=== PATIENT | female | born 1965 | race Caucasian/White ===

== ENCOUNTER → 2018-02-12 | Outpatient (CLI) | payer OTHER ==
--- NOTE | 2018-02-15 12:42 | MM ---
Reason for exam: screening (asymptomatic). Last mammogram was performed 2 years and 1 month ago. History: Patient is nulliparous. Took hormonal contraceptives for 9 months. Physical Findings: A clinical breast exam by your physician is recommended on an annual basis and results should be correlated with mammographic findings. MG 3D Screening Mammo W/Cad Bilateral CC and MLO view(s) were taken. Prior study comparison: January 25, 2016, bilateral MG screening mammo w CAD. August 23, 2012, bilateral digital screening mammo w/CAD. The breast tissue is heterogeneously dense. This may lower the sensitivity of mammography. There is chronic nodularity in the left breast. No significant changes when compared with prior studies. ASSESSMENT: Benign, BI-RAD 2 RECOMMENDATION: Routine screening mammogram of both breasts in 1 year.
== END | disposition home or self-care (01) ==
LOC: RADMAMWWP 13:50
PROVIDERS: ATTEND Family Medicine
DX: Z12.31 Encounter for screening mammogram for malignant neoplasm of breast (principal)
CPT/HCPCS: 77063; 77067

== ENCOUNTER → 2019-05-06 | Outpatient (CLI) | payer OTHER ==
--- NOTE | 2019-05-09 13:18 | MM ---
Reason for exam: screening (asymptomatic). Last mammogram was performed 1 year and 3 months ago. History: Patient is postmenopausal and is nulliparous. Took hormonal contraceptives for 9 months. Physical Findings: A clinical breast exam by your physician is recommended on an annual basis and results should be correlated with mammographic findings. MG 3D Screening Mammo W/Cad Bilateral CC and MLO view(s) were taken. Prior study comparison: February 12, 2018, bilateral MG 3d screening mammo w/cad. January 25, 2016, bilateral MG screening mammo w CAD. The breast tissue is heterogeneously dense. This may lower the sensitivity of mammography. Asymmetric density incompletely disperses medially right breast on the CC view. Further evaluation recommended. ASSESSMENT: Incomplete: need additional imaging evaluation, BI-RAD 0 RECOMMENDATION: Special view mammogram of the right breast. (3D) If lesion persists on supplemental views, image directed ultrasound is recommended. [facility] will attempt to contact patient to return for supplemental views and ultrasound if indicated.
== END | disposition home or self-care (01) ==
LOC: RADMAMWWP 14:45
PROVIDERS: ATTEND Family Medicine
DX: Z12.31 Encounter for screening mammogram for malignant neoplasm of breast (principal)
CPT/HCPCS: 77063; 77067

== ENCOUNTER → 2019-05-11 | Outpatient (CLI) | payer OTHER ==
--- NOTE | 2019-05-12 07:44 | MM ---
Reason for exam: additional evaluation requested from abnormal screening. Last mammogram was performed less than 1 month ago. History: Patient is postmenopausal and is nulliparous. Took hormonal contraceptives for 9 months. Physical Findings: Nurse did not find any significant physical abnormalities on exam. MG 3D Work Up W/Cad RT Spot compression CC, ML, and spot compression CCRL view(s) were taken of the right breast. Prior study comparison: May 06, 2019, bilateral MG 3d screening mammo w/cad. February 12, 2018, bilateral MG 3d screening mammo w/cad. The breast tissue is heterogeneously dense. This may lower the sensitivity of mammography. No suspicious abnormality. The right medial middle depth asymmetry appears as the exam of 2011. These results were verbally communicated with the patient and result sheet given to the patient on 05/11/19. ASSESSMENT: Benign, BI-RAD 2 RECOMMENDATION: Return to routine screening mammogram schedule for both breasts.
== END | disposition home or self-care (01) ==
LOC: RADMAMWWP 14:12
PROVIDERS: ATTEND Family Medicine
DX: R92.8 Other abnormal and inconclusive findings on diagnostic imaging of breast (principal)
CPT/HCPCS: 77061; 77065

== ENCOUNTER → 2019-08-02 | Outpatient (CLI) | payer OTHER ==
--- NOTE | 2019-08-02 10:50 | MR ---
EXAMINATION TYPE: MR brain wo/w con DATE OF EXAM: 08/02/2019 COMPARISON: None HISTORY: Headache TECHNIQUE: Multiplanar, multisequence images of the brain and brainstem is performed without and with IV contras t, utilizing 10 mL intravenous Gadavist . FINDINGS: Diffusion weighted images demonstrate no evidence of a recent infarct or other diffusion ab normality. The ventricular system and cisternal spaces are normal in size and appearance. The brain volume is age appropriate. Midline structures demonstrate normal morphology. The craniocervical junction appears within normal limits. Post contrast images demonstrate no abnormal enhancement. The dural venous sinuses appear pa tent. Changes of mild chronic sinusitis. There are numerous bilateral focal areas of abnormal signal seen scattered throughout the white matte r bilaterally the largest in the periatrial region on the right measuring approximately 1.2 cm. There are no enhancing lesions. IMPRESSION: 1. Numerous bilateral focal areas of abnormal white matter signal in a nonspecific distribution total ing greater than 50 with no enhancing lesions. Differential diagnosis includes extensive remote ische david white matter change although demyelinating process also in the differential diagnosis.
== END | disposition home or self-care (01) ==
LOC: RADMRIMAIN 09:38
PROVIDERS: ATTEND Family Medicine
DX: I67.82 Cerebral ischemia (principal); R90.82 White matter disease, unspecified; R51 Headache
CPT/HCPCS: 70553; A9585

== ENCOUNTER → 2019-08-08 | Outpatient (CLI) | payer OTHER ==
[2019-08-08 16:09] LABS: Vitamin D 25 Hydroxy 20.8 ng/mL (30.0-100.0)
[2019-08-08 16:28] LABS: C Reactive Protein 0.6 mg/dL (0.0-0.8); Chol/HDL Ratio 3.33; LDL Cholesterol,Calculated 118.6 mg/dL (0.0-131.0); VLDL Calculation 14.4 mg/dL (5.00-40.00)
== END | disposition home or self-care (01) ==
LOC: LABWHC1 07:51
PROVIDERS: ATTEND Psychiatry & Neurology Neurology
DX: G44.229 Chronic tension-type headache, not intractable (principal)
CPT/HCPCS: 36415; 80061; 82306; 82607; 85652; 86140

== ENCOUNTER → 2019-08-09 | Outpatient (CLI) | payer OTHER ==
--- NOTE | 2019-08-09 09:00 | US ---
EXAMINATION TYPE: US carotid duplex BILAT DATE OF EXAM: 08/09/2019 COMPARISON: NONE CLINICAL HISTORY: R51 Headache,G44.229 Tension Headache,G37.9 Demyel. headaches, no h/o stroke, patie nt being assessed for MS EXAM MEASUREMENTS: RIGHT: Peak Systolic Velocity (PSV) cm/sec ----- Right CCA: 54.6 ----- Right ICA: 59.6 ----- Right ECA: 83.5 ICA/CCA ratio: 1.1 RIGHT: End Diastole cm/sec ----- Right CCA: 24.7 ----- Right ICA: 24.0 ----- Right ECA: 30.8 LEFT: Peak Systolic Velocity (PSV) cm/sec ----- Left CCA: 59.4 ----- Left ICA: 68.4 ----- Left ECA: 75.1 ICA/CCA ratio: 1.2 LEFT: End Diastole cm/sec ----- Left CCA: 27.3 ----- Left ICA: 27.3 ----- Left ECA: 22.1 VERTEBRALS (direction of flow): Right Vertebral: Antegrade Left Vertebral: Antegrade Rhythm: Normal Mild homogeneous plaque seen with no significant stenosis IMPRESSION: Mild degree of grayscale atheromatous plaquing with no sonographically evident hemodynam ically significant stenosis within either visualized carotid arterial system. Criteria for Assigning % of Stenosis / Diameter reduction (Estimation based on the indirect measurements of the internal carotid artery velocities (ICA PSV). 1. Normal (no stenosis)=ICA PSV < 125 cm/s: ratio < 2.0: ICA EDV<40 cm/s. 2. Less than 50% stenosis=ICA PSV < 125 cm/s: ratio < 2.0: ICA EDV<40 cm/s. 3. 50 to 69% stenosis=ICA PSV of 125 to 230 cm/s: ration 2.0 ? 4.0: ICA EDV 40-100 cm/s. 4. Greater than 70% stenosis to near occlusion= ICA PSV > 230 cm/s: ratio > 4.0: ICA EDV > 100 cm/s. 5. Near occlusion= ICA PSV velocities may be low or undetectable: variable ratio and ICA EDV. 6. Total occlusion=unable to detect flow.
== END | disposition home or self-care (01) ==
LOC: RADUSWWP 08:16
PROVIDERS: ATTEND Psychiatry & Neurology Neurology
DX: I67.2 Cerebral atherosclerosis (principal); G37.9 Demyelinating disease of central nervous system, unspecified; G44.229 Chronic tension-type headache, not intractable
CPT/HCPCS: 93880

== ENCOUNTER 2019-08-11 06:31 | Day surgery (SDC) | payer OTHER ==
[2019-08-08 16:03] VITALS: BMI 35.7
[2019-08-11 07:02] VITALS: TEMP 97.4
[2019-08-11 07:11] LABS: Glucose,Whole Blood 105 mg/dL (75-99)
[2019-08-11] MEDS ORDERED: LIDOCAINE 1% 20 ML VIAL (10MG/ML) FOR IV START INTRADERMA ONE (07:14)
[2019-08-11] MEDS ORDERED: LACTATED RINGERS 1,000 ML IV ONE (07:14)
--- NOTE | 2019-08-11 07:48 | P.PCN ---
Date of Procedure: 08/11/19 Procedure(s) Performed: Preoperative diagnosis: Demyelinating disease Post operative diagnoses: Demyelinating disease Anesthesia= moderately sedation with Versed 2 mg and fentanyl 100 g and local infiltration with lidocaine 1% 2 mL. Condition: stable Complication: none. Description of the procedure procedure risk and benefits discussed with the patient and family, consent signed. Patient and the procedure area placed in lateral position back prepped with chlorhexidine 3 times been local infiltration of the skin and subcutaneous tissue with lidocaine 1% 2 mL for skin and subcu interstitial frustrations at L4 5 levels then 22-gauge Quincke-type needle advanced slowly at L4- 5 interlaminar space there was positive cerebrospinal fluid which was clear, no heme, no paresthesia ,total of 8 ML of clear cerebrospinal fluid collected in 4 different tubes 2 mL in each, then the needle removed and a Band-Aid applied and patient tolerated the procedure well without any complications.
[2019-08-11] MEDS ORDERED: IV FLUID CONTINUATION 1,000 ML IV ONE (07:51)
[2019-08-11 08:16] LABS: T4, Free (Free Thyroxine) 0.9 ng/dL (0.78-2.19)
[2019-08-11 08:36] VITALS: BP 130/75; PULSE 69; RESP 16
[2019-08-11] MEDS ORDERED: LACTATED RINGERS 1,000 ML IV SCH (09:30)
[2019-08-11 11:36] LABS: Rheumatoid Factor 8 IU/mL (0-15)
[2019-08-11 12:08] LABS: Glucose,CSF 61 mg/dL (40-70); Total Protein,CSF 34 mg/dL (12-60)
[2019-08-11 12:30] LABS: Anti-DNA, DS unit <1.0 IU/mL; Anti-Smith Ab Interp NEGATIVE (NEGATIVE); DNA Double-Stranded NEGATIVE (NEGATIVE)
[2019-08-11 15:21] LABS: Appearance,CSF Clear; CSF Tube Number 4
[2019-08-11 15:22] LABS: Nucleated Cells, CSF 0 u/L (0-5); Red Blood Cell,CSF 3 u/L (0-10)
[2019-08-12 09:44] LABS: Lyme IgG/IgM 0.08 Index
[2019-08-12 12:21] LABS: VDRL, Qualitative CSF Nonreactive (Nonreactive)
[2019-08-12 13:33] LABS: APTT 36 Sec(s) (<43); Dilute Russell Viper Venom 40 Sec(s) (<44)
[2019-08-16 15:06] LABS: IgG - CSF 1.4 mg/dL (0.0 - 3.4); IgG/Albumin Index (CSF) 0.49 (0.00 - 0.77); Immunoglobulin G 888 mg/dL (700 - 1600)
== END 2019-08-11 08:37 | disposition home or self-care (01) ==
LOC: ORPAIN 06:31
PROVIDERS: ATTEND Specialist
DX: G37.9 Demyelinating disease of central nervous system, unspecified (principal)
CPT/HCPCS: 86592; 86235 ×3; 84439; 88108; 84157; 82945; 82040; 82042; 82784; 83916; 83873; 84443; 84450; 84460; 85730; 86431; 85613; 89050; 86618; 86780; 86038; 86225; 87801; 62270; J2250; J3010; 99152

== ENCOUNTER 2019-08-13 08:07 | Emergency (ER) | payer OTHER ==
[2019-08-13 08:13] VITALS: RESP 18; TEMP 98
[2019-08-13] MEDS ORDERED: diphenhydrAMINE 50 MG/ML 1 ML VIAL IVP STA (08:30)
[2019-08-13] MEDS ORDERED: SODIUM CHLORIDE 0.9% 1,000 ML IV STA (08:30)
[2019-08-13] MEDS ORDERED: METOCLOPRAMIDE 5 MG/ML 2 ML VIAL IVP STA (08:30)
[2019-08-13] MEDS ORDERED: KETOROLAC 30 MG/ML 1 ML VIAL IVP STA (08:30)
[2019-08-13] MEDS ORDERED: CAFFEINE CITRATE 500 MG in DEXTROSE 5% IN WATER 50 ML IVPB STA ×2 (08:32)
--- NOTE | 2019-08-13 08:37 | ED ---
General Adult HPI - General Chief complaint: Headache Stated complaint: head/neck pain Time Seen by Provider: 08/13/19 08:17 Source: patient, RN notes reviewed, old records reviewed Mode of arrival: ambulatory Limitations: no limitations - History of Present Illness Initial comments: Patient is a 53-year-old female presents emergency department today 2 days after lumbar puncture complaining of a positional headache. Patient reports that she had the lumbar puncture to evaluate for demyelinating disease, MS. Patient states she's had a history of frequent headaches, and has had outpatient studies including MRI and completed this lumbar puncture. Patient reports that her headache is worse with sitting up and does have some relief with lying backw ards. Patient states that she lays completely flat does have some pain at the lower back lumbar puncture site. She states she's been sleeping in a 20 angle. She's been drinking a lot of caffeine to try to help with her symptoms. Patient reports that the headache seemed to start Paxil 24 hours after lumbar puncture and was worse when she woke up on Thursday morning. She she had a mild headache after the actual lumbar puncture was not as severe as it was 24 hours later. Patient states she's had no fevers or chills. Patient states that she has had a neck fusion many years ago due to a work-related injury. Patient states that she has been having some irritation over the back of her left arm but denies any specific chest pain shortness of breath. Says her arm pain seems to feel like a pinched nerve.Patient denies any recent fever, chills, shortness of breath, chest pain, back pain, abdominal pain, nausea vomiting, numbness or tingling, dysuria or hematuria, constipation or diarrhea, visual changes, or any other current symptoms - Related Data Home Medications Medication Instructions Recorded Confirmed Atenolol [Tenormin] 50 mg PO DAILY 12/13/14 08/11/19 Omeprazole [PriLOSEC] 20 mg PO DAILY 12/13/14 08/11/19 Spironolactone-Hctz 25-25Mg 1 each PO DAILY 12/13/14 08/11/19 [Aldactazide 25-25 MG] Acetaminophen-Codeine 300-30mg 1 - 2 tab PO DAILY PRN 08/08/19 08/11/19 [Tylenol w/codeine #3] Aspirin [Adult Low Dose Aspirin EC] 81 mg PO DAILY 08/08/19 08/11/19 Felicia 500 mg PO DAILY 08/08/19 08/11/19 Ginkgo Biloba 500 mg PO DAILY 08/08/19 08/11/19 Nortriptyline HCl [Pamelor] 25 mg PO HS 08/08/19 08/11/19 Allergies Allergy/AdvReac Type Severity Reaction Status Date / Time oranges Allergy Itching,yadiel Uncoded 08/13/19 08:08 h Review of Systems ROS Statement: Those systems with pertinent positive or pertinent negative responses have been documented in the HPI. ROS Other: All systems not noted in ROS Statement are negative. Past Medical History Past Medical History: GERD/Reflux, Hypertension Additional Past Medical History / Comment(s): varicose veins,migraines,hypoglycemia History of Any Multi-Drug Resistant Organisms: None Reported Past Surgical History: Orthopedic Surgery, Tubal Ligation, Uterine Ablation Additional Past Surgical History / Comment(s): arthroscopic rt knee x 2, neck surgery for herniated disk, lumbar puncture Past Anesthesia/Blood Transfusion Reactions: Motion Sickness, Postoperative Nausea & Vomiting (PONV) Additional Past Anesthesia/Blood Transfusion Reaction / Comment(s): can not touc h her chin to her chest as result of neck surgery- no limitations to tip head back Past Psychological History: No Psychological Hx Reported Smoking Status: Former smoker Past Alcohol Use History: None Reported Past Drug Use History: None Reported General Exam - General Exam Comments Initial Comments: 53 year old female, alert and oriented. No distress. Limitations: no limitations General appearance: alert, in no apparent distress Head exam: Present: atraumatic, normocephalic, normal inspection Eye exam: Present: normal appearance ENT exam: Present: normal exam, mucous membranes moist Neck exam: Present: normal inspection Respiratory exam: Present: normal lung sounds bilaterally. Absent: respiratory distress, wheezes, rales, rhonchi, stridor Cardiovascular Exam: Present: regular rate, normal rhythm, normal heart sounds. Absent: systolic murmur, diastolic murmur, rubs, gallop, clicks GI/Abdominal exam: Present: soft, normal bowel sounds. Absent: distended, tenderness, guarding, rebound, rigid Extremities exam: Present: normal inspection, full ROM, normal capillary refill. Absent: tenderness, pedal edema, joint swelling, calf tenderness Back exam: Present: normal inspection Neurological exam: Present: alert, oriented X3, CN II-XII intact Expanded Neurological exam: Present: other (Patient reports headache is worse with sitting up.) Patient oriented to: Present: person, place, time Speech: Present: fluid speech Cranial nerves: EOM's Intact: Normal Cerebellar function: Finger to Nose: Normal Upper motor neuron: Pronator Drift: Normal Sensory exam: Upper Extremity Light Touch: Normal, Lower Extremity Light Touch: Normal Motor strength exam: RUE: 5, LUE: 5, RLE: 5, LLE: 5 Eye Response: (4) open spontaneously Motor Response: (6) obeys commands Verbal Response: (5) oriented Josh Total: 15 Psychiatric exam: Present: normal affect, normal mood Skin exam: Present: warm Course Vital Signs 08/13/19 08/13/19 08/13/19 08:08 10:24 11:30 Temperature 98 F Pulse Rate 80 73 85 Respiratory 18 18 18 Rate Blood Pressure 149/97 160/89 146/95 O2 Sat by Pulse 99 100 100 Oximetry - Reevaluation(s) Reevaluation #1: 08/13/19 09:58 Discussed the case with Dr. Hinojosa, anesthesiologist. He will be down to the emergency department to evaluate Patient after his current case. Reevaluation #2: 08/13/19 11:31 Contacted anesthesia again, he has dizziness time with labor and delivery. Patient was informed that may be that he'll he is here for possible blood patch procedure. Medical Decision Making - Medical Decision Making Patient 3-year-old female presents today with chief complaint of lumbar puncture headache. Symptoms started to worsen 24 hours after lumbar puncture. She's being violated for MS. At this time Patient was given migraine cocktail and caffeine. On reevaluation shorts her headache with a little improvement but continues to have worsening headache with sitting up. She has no noted other neurological deficits. He contacted anesthesia and Dr. Hinojosa performed a blood patch. Patient reports immediate relief after the blood patch procedure. Patient was reevaluated and states she feels well enough wants to go home. Discharged on precautions and instructed to return parameters. All questions answered return parameters were discussed. - Lab Data Result diagrams: 08/13/19 08:45 08/13/19 08:45 Lab Results 08/13/19 08/13/19 08/13/19 Range/Units 08:45 08:45 08:45 WBC 6.3 (3.8-10.6) k/uL RBC 4.67 (3.80-5.40) m/uL Hgb 14.1 (11.4-16.0) gm/dL Hct 43.0 (34.0-46.0) % MCV 92.1 (80.0-100.0) fL MCH 30.2 (25.0-35.0) pg MCHC 32.8 (31.0-37.0) g/dL RDW 12.9 (11.5-15.5) % Plt Count 303 (150-450) k/uL Neutrophils % 70 % Lymphocytes % 22 % Monocytes % 4 % Eosinophils % 2 % Basophils % 1 % Neutrophils # 4.4 (1.3-7.7) k/uL Lymphocytes # 1.4 (1.0-4.8) k/uL Monocytes # 0.2 (0-1.0) k/uL Eosinophils # 0.1 (0-0.7) k/uL Basophils # 0.0 (0-0.2) k/uL PT 9.8 (9.0-12.0) sec INR 0.9 (<1.2) APTT 22.8 (22.0-30.0) sec Sodium 141 (137-145) mmol/L Potassium 3.5 (3.5-5.1) mmol/L Chloride 102 (98-107) mmol/L Carbon Dioxide 26 (22-30) mmol/L Anion Gap 13 mmol/L BUN 15 (7-17) mg/dL Creatinine 0.99 (0.52-1.04) mg/dL Est GFR (CKD-EPI)AfAm 76 (>60 ml/min/1.73 sqM) Est GFR (CKD-EPI)NonAf 66 (>60 ml/min/1.73 sqM) Glucose 146 H (74-99) mg/dL Calcium 9.9 (8.4-10.2) mg/dL Total Bilirubin 0.4 (0.2-1.3) mg/dL AST 21 (14-36) U/L ALT 30 (9-52) U/L Alkaline Phosphatase 54 (38-126) U/L Troponin I (0.000-0.034) ng/mL Total Protein 7.1 (6.3-8.2) g/dL Albumin 4.1 (3.5-5.0) g/dL 08/13/19 Range/Units 08:45 WBC (3.8-10.6) k/uL RBC (3.80-5.40) m/uL Hgb (11.4-16.0) gm/dL Hct (34.0-46.0) % MCV (80.0-100.0) fL MCH (25.0-35.0) pg MCHC (31.0-37.0) g/dL RDW (11.5-15.5) % Plt Count (150-450) k/uL Neutrophils % % Lymphocytes % % Monocytes % % Eosinophils % % Basophils % % Neutrophils # (1.3-7.7) k/uL Lymphocytes # (1.0-4.8) k/uL Monocytes # (0-1.0) k/uL Eosinophils # (0-0.7) k/uL Basophils # (0-0.2) k/uL PT (9.0-12.0) sec INR (<1.2) APTT (22.0-30.0) sec Sodium (137-145) mmol/L Potassium (3.5-5.1) mmol/L Chloride (98-107) mmol/L Carbon Dioxide (22-30) mmol/L Anion Gap mmol/L BUN (7-17) mg/dL Creatinine (0.52-1.04) mg/dL Est GFR (CKD-EPI)AfAm (>60 ml/min/1.73 sqM) Est GFR (CKD-EPI)NonAf (>60 ml/min/1.73 sqM) Glucose (74-99) mg/dL Calcium (8.4-10.2) mg/dL Total Bilirubin (0.2-1.3) mg/dL AST (14-36) U/L ALT (9-52) U/L Alkaline Phosphatase (38-126) U/L Troponin I <0.012 (0.000-0.034) ng/mL Total Protein (6.3-8.2) g/dL Albumin (3.5-5.0) g/dL - Radiology Data Radiology results: report reviewed EKG shows sinus rhythm normal EKG. Ventricular rate of 69 bpm. Vitals 198 ms. QRS duration is 90 ms. QT QTc is 92/420 ms. Disposition Clinical Impression: Post lumbar puncture headache Disposition: HOME SELF-CARE Condition: Good Instructions (If sedation given, give patient instructions): Epidural Blood Patch (DC) Additional Instructions: Patient advised to rest, remain hydrated. Continue to drink plenty of caffeine. Return to the emergency department if any alarming signs or symptoms occur. Is patient prescribed a controlled substance at d/c from ED?: No Referrals: Luis Eduardo Sanford DO [Primary Care Provider] - 1-2 days Time of Disposition: 12:10
[2019-08-13] MEDS ORDERED: HALOPERIDOL DECANOATE 50 MG/ML 1 ML VIAL IM STA (08:46)
[2019-08-13 09:00] LABS: Basophils % (A) 1 %; Eosinophils # (A) 0.1 k/uL (0-0.7); Eosinophils % (A) 2 %; HGB 14.1 gm/dL (11.4-16.0); Lymphocytes # (A) 1.4 k/uL (1.0-4.8); Lymphocytes % (A) 22 %; MCH 30.2 pg (25.0-35.0); MCHC 32.8 g/dL (31.0-37.0); MCV 92.1 fL (80.0-100.0); Mean Platelet Volume 7.3; Monocytes # (A) 0.2 k/uL (0-1.0); Monocytes % (A) 4 %; Neutrophils # (A) 4.4 k/uL (1.3-7.7); Neutrophils % (A) 70 %; Platelet Count 303 k/uL (150-450); RBC 4.67 m/uL (3.80-5.40); RDW 12.9 % (11.5-15.5); WBC 6.3 k/uL (3.8-10.6)
[2019-08-13] MEDS ORDERED: CAFFEINE-SODIUM BENZOATE 500 MG in SODIUM CHLORIDE 0.9% 1,000 ML IVPB ONE (09:00)
[2019-08-13 09:12] LABS: INR 0.9 (<1.2); Partial Thromboplastin Time 22.8 sec (22.0-30.0); Prothrombin Time 9.8 sec (9.0-12.0)
[2019-08-13 09:16] LABS: Albumin 4.1 g/dL (3.5-5.0); Calcium 9.9 mg/dL (8.4-10.2); Potassium 3.5 mmol/L (3.5-5.1); Total Bilirubin 0.4 mg/dL (0.2-1.3); Total Protein 7.1 g/dL (6.3-8.2)
[2019-08-13 11:39] VITALS: BP 146/95; PULSE 85
--- NOTE | 2019-08-13 12:15 | P.PAINCN ---
History of Present Illness - Reason for Consult Consult date: 08/13/19 - Chief Complaint Bifrontal and occipital headache - History of Present Illness 53-year-old female who presented to [facility] emergency [facility] secondary to bifrontal and occipital headaches. She status post lumbar puncture on 08/09/2019. Lumbar puncture was performed in order to rule out multiple sclerosis. The following day patient woke up with a complaint of bifrontal headaches worse in the sitting position and improved when supine. She also complains of new rigidity in the upright position. Pain into her between 8 and 9 at 10 in severity mostly in the bifrontal region as well as in the occiput. She has a history of intermittent headaches mostly in the bifrontal region however not involving the occiput. She denies a history of migraines. She tried conservative therapy of IV hydration as well as caffeine with minimal benefit. She has complaints of mild nausea, but no vomiting, no tinnitus, no photophobia. Pain service was consulted for evaluation of possible postdural puncture headache. Review of Systems 14 point review of systems negative except as mentioned in HPI. Past Medical History Past Medical History: GERD/Reflux, Hypertension Additional Past Medical History / Comment(s): varicose veins,migraines,hypoglycemia History of Any Multi-Drug Resistant Organisms: None Reported Past Surgical History: Orthopedic Surgery, Tubal Ligation, Uterine Ablation Additional Past Surgical History / Comment(s): arthroscopic rt knee x 2, neck surgery for herniated disk, lumbar puncture Past Anesthesia/Blood Transfusion Reactions: Motion Sickness, Postoperative Nausea & Vomiting (PONV) Additional Past Anesthesia/Blood Transfusion Reaction / Comm: can not touch her chin to her chest as result of neck surgery- no limitations to tip head back Past Psychological History: No Psychological Hx Reported Smoking Status: Former smoker Past Alcohol Use History: None Reported Past Drug Use History: None Reported Medications and Allergies Home Medications Medication Instructions Recorded Confirmed Type Atenolol [Tenormin] 50 mg PO DAILY 12/13/14 08/11/19 History Omeprazole [PriLOSEC] 20 mg PO DAILY 12/13/14 08/11/19 History Spironolactone-Hctz 25-25Mg 1 each PO DAILY 12/13/14 08/11/19 History [Aldactazide 25-25 MG] Acetaminophen-Codeine 300-30mg 1 - 2 tab PO DAILY PRN 08/08/19 08/11/19 History [Tylenol w/codeine #3] Aspirin [Adult Low Dose Aspirin EC] 81 mg PO DAILY 08/08/19 08/11/19 History Felicia 500 mg PO DAILY 08/08/19 08/11/19 History Ginkgo Biloba 500 mg PO DAILY 08/08/19 08/11/19 History Nortriptyline HCl [Pamelor] 25 mg PO HS 08/08/19 08/11/19 History Allergies Allergy/AdvReac Type Severity Reaction Status Date / Time oranges Allergy Itching,yadiel Uncoded 08/13/19 08:08 h Physical Exam Vitals: Vital Signs Temp Pulse Resp BP Pulse Ox 08/13/19 11:30 85 18 146/95 100 08/13/19 10:24 73 18 160/89 100 08/13/19 08:08 98 F 80 18 149/97 99 Intake and Output 08/12/19 08/13/19 08/13/19 22:59 06:59 14:59 Other: Weight 96.615 kg - Constitutional General appearance: obese - EENT Eyes: PERRLA ENT: hearing grossly normal, normal oropharynx - Neck Neck: other (Psychiatric decreased range of motion secondary to cervical fusion) - Respiratory Respiratory: bilateral: CTA - Cardiovascular Rhythm: regular Heart sounds: normal: S1, S2 - Integumentary Integumentary: normal, normal turgor - Neurologic Neurologic: CNII-XII intact - Musculoskeletal Musculoskeletal: strength equal bilaterally - Psychiatric Psychiatric: A&O x's 3, appropriate affect, intact judgment & insight Results CBC & Chem 7: 08/13/19 08:45 08/13/19 08:45 Labs: Abnormal Lab Results - Last 24 Hours (Table) 08/13/19 Range/Units 08:45 Glucose 146 H (74-99) mg/dL Assessment and Plan Assessment: 1. Posterior puncture headache. Plan: I discussed the risks and benefits of proceeding with epidural blood patch which include infection, bleeding, rare nerve injury. The major risks discussed was potential for accidental dural puncture. I offered patient to continue conservative therapy with IV hydration and caffeine, I did inform her that 80- 90% of patients will have headache resolved within 7 days. Patient wished to proceed with an epidural blood patch knowing efficacy of roughly 85%. Patient wished to proceed and signed the consent. Time with Patient: Greater than 30 PQRS Measure Charge Sheet PQRS Narrative: Smoking Status Former smoker Blood Pressure 146/95 Pain Intensity 5 Pain Scale Used Numeric (1 - 10) Scale Used Numeric (1 - 10) Home Medications: Ambulatory Orders Atenolol [Tenormin] 50 mg PO DAILY 12/13/14 Omeprazole [PriLOSEC] 20 mg PO DAILY 12/13/14 Spironolactone-Hctz 25-25Mg [Aldactazide 25-25 MG] 1 each PO DAILY 12/13/14 Acetaminophen-Codeine 300-30mg [Tylenol w/codeine #3] 1 - 2 tab PO DAILY PRN 08/08/19 Aspirin [Adult Low Dose Aspirin EC] 81 mg PO DAILY 08/08/19 Felicia 500 mg PO DAILY 08/08/19 Ginkgo Biloba 500 mg PO DAILY 08/08/19 Nortriptyline HCl [Pamelor] 25 mg PO HS 08/08/19
--- NOTE | 2019-08-13 12:17 | P.PCN ---
Date of Procedure: 08/13/19 Description of Procedure: Procedure: Lumbar epidural blood patch. Preoperative diagnosis: Post Dural puncture headache. Postoperative diagnoses: Post Dural puncture headache. Indication for the procedure: patient developed headache after lumbar puncture and headache persists in spite of conservative treatment, there is no focal neurological deficit, no fever. headache worse with sitting and standing position, and improved with lying supine, for this reason patient is a good candidate for epidural blood patch. Anesthesia: none Complications: none. Description of the procedure Back lumbar area prepped with Betadine 3 times, then drape applied the local infiltration of the skin and subcutaneous tissue with lidocaine 1% 3 mL at L4-L5 interlaminar space then a 18-gauge Tuohy needle advanced slowly until loss or resistance was met at 7 cm. Additionally, a 20-gauge IV needle was inserted into the right antecubital and 20 ML of blood was taken from the patient, and injected in the epidural space after negative aspiration for heme or CSF. a total of 15 mL's blood was injected until complete resolution of patient's headache. There was no paresthesia then the needle removed intact the skin cleaned and band aid applied and patient discharged back to the floor in stable condition.
== END 2019-08-13 12:29 | disposition home or self-care (01) ==
LOC: EC 08:07
DX: G97.1 Other reaction to spinal and lumbar puncture (principal); M54.5 Low back pain; M79.602 Pain in left arm; K21.9 Gastro-esophageal reflux disease without esophagitis; I10 Essential (primary) hypertension; Z87.891 Personal history of nicotine dependence; Z91.018 Allergy to other foods; Z79.82 Long term (current) use of aspirin; Z79.899 Other long term (current) drug therapy; Z86.69 Personal history of other diseases of the nervous system and sense organs; Z87.828 Personal history of other (healed) physical injury and trauma; Z98.1 Arthrodesis status; Y84.4 Aspiration of fluid as the cause of abnormal reaction of the patient, or of later complication, without mention of misadventure at the time of the procedure
CPT/HCPCS: 36415; 93005; 80053; 84484; 85025; 85610; 85730; 99284; 62273; 96365; 96366 ×2; 96375 ×3; J1200; J2765; J1885

== ENCOUNTER → 2021-04-12 | Outpatient (CLI) | payer OTHER ==
--- NOTE | 2021-04-15 08:56 | MM ---
Reason for exam: screening (asymptomatic). Last mammogram was performed 1 year and 11 months ago. History: Patient is postmenopausal and is nulliparous. Took hormonal contraceptives for 9 months. Physical Findings: A clinical breast exam by your physician is recommended on an annual basis and results should be correlated with mammographic findings. MG 3D Screening Mammo W/Cad Bilateral CC and MLO view(s) were taken. Prior study comparison: May 11, 2019, right breast MG 3d work up w/cad RT. May 06, 2019, bilateral MG 3d screening mammo w/cad. The breast tissue is heterogeneously dense. This may lower the sensitivity of mammography. There are benign appearing round calcifications bilaterally. There is chronic nodularity in the left breast outer aspect. There is no discrete abnormality. ASSESSMENT: Benign, BI-RAD 2 RECOMMENDATION: Routine screening mammogram of both breasts in 1 year.
== END | disposition home or self-care (01) ==
LOC: RADMAMWWP 09:49
PROVIDERS: ATTEND Family Medicine
DX: Z12.31 Encounter for screening mammogram for malignant neoplasm of breast (principal); Z78.0 Asymptomatic menopausal state
CPT/HCPCS: 77063; 77067

== ENCOUNTER → 2022-08-27 | Outpatient (CLI) | payer MEDICARE ==
--- NOTE | 2022-08-27 10:16 | MM ---
Reason for Exam: Additional evaluation requested from prior study. Last mammogram was performed 1 year(s) and 4 month(s) ago. Patient History: Menarche at age 15. Patient has no children. Postmenopausal. Breast cancer, left, age 56. Hormonal Contraceptives for 9 months. 05/09/2022, Bilateral Reduction. Tissue Density: The breast tissue is heterogeneously dense. This may lower the sensitivity of mammography. Findings: Analyzed By CAD. Interval distortion and diminished size to bilateral breasts consistent with interval bilateral breast reduction surgery. Benign-appearing bilateral axillary lymph nodes are redemonstrated. No suspicious new mass or suspicious group of microcalcifications in either breast. Overall Assessment: Benign, BI-RAD 2 Management: Screening Mammogram of both breasts in 1 year. A clinical breast exam by your physician is recommended on an annual basis and results should be correlated with mammographic findings. This exam should not preclude additional follow-up of suspicious palpable abnormalities. Results were given to the patient verbally at the time of exam. Electronically signed and approved by: Moiz Cabrera M.D.
== END | disposition home or self-care (01) ==
LOC: RADMAMWWP 09:32
PROVIDERS: ATTEND Family Medicine
DX: D05.02 Lobular carcinoma in situ of left breast (principal)
CPT/HCPCS: 77066; G0279; 77062

== ENCOUNTER 2022-11-12 02:08 | Inpatient (IN) | payer MEDICARE ==
[2022-11-12] MEDS ORDERED: MORPHINE SULFATE 4 MG/ML SYRINGE IVP STA (03:42)
[2022-11-12] MEDS ORDERED: ONDANSETRON 4 MG/2 ML VIAL IVP STA (03:43)
--- NOTE | 2022-11-12 03:49 | ED ---
General Adult HPI - General Chief complaint: Abdominal Pain Stated complaint: Abdominal Pain Time Seen by Provider: 11/12/22 03:33 Source: patient Mode of arrival: ambulatory Limitations: no limitations - History of Present Illness Initial comments: Dictation was produced using [employer] dictation software. please excuse any grammatical, word or spelling errors. Chief Complaint: 57-year-old female presents with acutely worsening abdominal pain History of Present Illness: Is 57-year-old female starting 36 hours ago she began having suprapubic pain. She did have some bouts of diarrhea. Patient went to the urgent care where she was diagnosed with perhaps urinary tract infection. States that her pain was mild at that time however over the last several hours her pain is acutely worsened. She reports pain in left lower quadrant. She says left CVA pain. She was given some antibiotics from the urgent care. Patient denies any constitutional symptoms. The ROS documented in this emergency department record has been reviewed and confirmed by me. Those systems with pertinent positive or negative responses have been documented in the HPI. All other systems are other negative and/or noncontributory. PHYSICAL EXAM: General Impression: Alert and oriented x3, not in acute distress HEENT: Normocephalic atraumatic, extra-ocular movements intact, pupils equal and reactive to light bilaterally, mucous membranes moist. Cardiovascular: Heart regular rate and rhythm Chest: Able to complete full sentences, no retractions, no tachypnea Abdomen: abdomen soft, , non-distended, no organomegaly, tenderness in the left lower quadrant Musculoskeletal: Pulses present and equal in all extremities, no peripheral edema, positive pain with CVA thump Motor: no focal deficits noted Neurological: CN II-XII grossly intact, no focal motor or sensory deficits noted Skin: Intact with no visualized rashes Psych: Normal affect and mood ED course: 57-year-old female presents emergency Department with abdominal pain. Differential includes diverticulitis, cystitis, pyelonephritis. Vital signs upon arrival are within acceptable limits. Nursing notes and chart review was performed Laboratory evaluation obtained. CBC, metabolic panel is unremarkable. Urinalysis positive for urinary tract infection likely secondary to E. coli. Co mputed tomography scan abdomen and pelvis shows small obstructing calculus at the left ureter UVJ with left-sided hydronephrosis and hydroureter and perinephric edema. Patient reevaluated at the bedside at 5:30 AM. Disposition options were discussed. Patient states that her pain is severe. Given patient's description of her symptoms is not colicky more like a constant ache to the left CVA area suggesting pyelonephritis as the more apparent cause of her symptoms as opposed to small stone. Patient's pain likely is however multiple factorial. Admitted to [facility] hospitalist group. Urology consulted. given ceftriaxone. - Related Data Home Medications Medication Instructions Recorded Confirmed Atenolol [Tenormin] 50 mg PO DAILY 12/13/14 08/11/19 Omeprazole [PriLOSEC] 20 mg PO DAILY 12/13/14 08/11/19 Spironolactone-Hctz 25-25Mg 1 each PO DAILY 12/13/14 08/11/19 [Aldactazide 25-25 MG] Acetaminophen-Codeine 300-30mg 1 - 2 tab PO DAILY PRN 08/08/19 08/11/19 [Tylenol w/codeine #3] Aspirin [Adult Low Dose Aspirin EC] 81 mg PO DAILY 08/08/19 08/11/19 Felicia 500 mg PO DAILY 08/08/19 08/11/19 Ginkgo Biloba 500 mg PO DAILY 08/08/19 08/11/19 Nortriptyline HCl [Pamelor] 25 mg PO HS 08/08/19 08/11/19 Allergies Allergy/AdvReac Type Severity Reaction Status Date / Time oranges Allergy Itching,yadiel Uncoded 11/12/22 02:23 h Review of Systems ROS Statement: Those systems with pertinent positive or pertinent negative responses have been documented in the HPI. ROS Other: All systems not noted in ROS Statement are negative. Past Medical History Past Medical History: GERD/Reflux, Hypertension Additional Past Medical History / Comment(s): varicose veins,migraines,hypoglycemia History of Any Multi-Drug Resistant Organisms: None Reported Past Surgical History: Orthopedic Surgery, Tubal Ligation, Uterine Ablation Additional Past Surgical History / Comment(s): arthroscopic rt knee x 2, neck surgery for herniated disk, lumbar puncture Past Anesthesia/Blood Transfusion Reactions: Motion Sickness, Postoperative Nausea & Vomiting (PONV) Additional Past Anesthesia/Blood Transfusion Reaction / Comment(s): can not touch her chin to her chest as result of neck surgery- no limitations to tip head back Past Psychological History: No Psychological Hx Reported Smoking Status: Never smoker Past Alcohol Use History: Occasional Past Drug Use History: None Reported General Exam Limitations: no limitations Course Vital Signs 11/12/22 02:19 Temperature 97.9 F Pulse Rate 61 Respiratory 18 Rate Blood Pressure 169/83 O2 Sat by Pulse 95 Oximetry Medical Decision Making - Lab Data Result diagrams: 11/12/22 03:45 11/12/22 03:45 Lab Results 11/12/22 11/12/22 11/12/22 Range/Units 03:45 03:45 03:45 WBC 11.0 H (3.8-10.6) k/uL RBC 4.05 (3.80-5.40) m/uL Hgb 12.8 (11.4-16.0) gm/dL Hct 37.2 (34.0-46.0) % MCV 91.8 (80.0-100.0) fL MCH 31.6 (25.0-35.0) pg MCHC 34.5 (31.0-37.0) g/dL RDW 13.1 (11.5-15.5) % Plt Count 211 (150-450) k/uL MPV 8.7 Neutrophils % 87 % Lymphocytes % 9 % Monocytes % 3 % Eosinophils % 1 % Basophils % 0 % Neutrophils # 9.6 H (1.3-7.7) k/uL Lymphocytes # 1.0 (1.0-4.8) k/uL Monocytes # 0.3 (0-1.0) k/uL Eosinophils # 0.1 (0-0.7) k/uL Basophils # 0.0 (0-0.2) k/uL Sodium 137 (137-145) mmol/L Potassium 4.1 (3.5-5.1) mmol/L Chloride 107 (98-107) mmol/L Carbon Dioxide 21 L (22-30) mmol/L Anion Gap 9 mmol/L BUN 19 H (7-17) mg/dL Creatinine 1.66 H (0.52-1.04) mg/dL Est GFR (CKD-EPI)AfAm 39 (>60 ml/min/1.73 sqM) Est GFR (CKD-EPI)NonAf 34 (>60 ml/min/1.73 sqM) Glucose 127 H (74-99) mg/dL Calcium 9.1 (8.4-10.2) mg/dL Total Bilirubin 1.0 (0.2-1.3) mg/dL AST 48 H (14-36) U/L ALT 36 H (4-34) U/L Alkaline Phosphatase 52 (38-126) U/L Total Protein 7.3 (6.3-8.2) g/dL Albumin 4.3 (3.5-5.0) g/dL Lipase 188 (23-300) U/L Urine Color Dark Brown Urine Appearance Cloudy H (Clear) Urine pH 6.0 (5.0-8.0) Ur Specific [place] 1.021 (1.001-1.035) Urine Protein Trace H (Negative) Urine Glucose (UA) Negative (Negative) Urine Ketones Negative (Negative) Urine Blood Negative (Negative) Urine Nitrite Positive H (Negative) Urine Bilirubin 1+ H (Negative) Urine Urobilinogen 4.0 (<2.0) mg/dL Ur Leukocyte Esterase Trace H (Negative) Urine RBC 3 (0-5) /hpf Urine WBC 16 H (0-5) /hpf Ur Squamous Epith Cells 7 H (0-4) /hpf Urine Bacteria Few H (None) /hpf Urine Mucus Rare H (None) /hpf Disposition Clinical Impression: Pyelonephritis Disposition: ADMITTED IP TO THIS [facility] Condition: Fair Referrals: Luis Eduardo Sanford DO [Primary Care Provider] - 1-2 days Decision Time: 05:29
[2022-11-12 03:52] LABS: Basophils % (A) 0 %; Eosinophils # (A) 0.1 k/uL (0-0.7); Eosinophils % (A) 1 %; HCT 37.2 % (34.0-46.0); HGB 12.8 gm/dL (11.4-16.0); Lymphocytes % (A) 9 %; MCH 31.6 pg (25.0-35.0); MCHC 34.5 g/dL (31.0-37.0); MCV 91.8 fL (80.0-100.0); Mean Platelet Volume 8.7; Monocytes # (A) 0.3 k/uL (0-1.0); Monocytes % (A) 3 %; Neutrophils # (A) 9.6 k/uL (1.3-7.7); Neutrophils % (A) 87 %; Platelet Count 211 k/uL (150-450); RBC 4.05 m/uL (3.80-5.40); RDW 13.1 % (11.5-15.5)
[2022-11-12 04:02] LABS: Appearance,Urine Cloudy (Clear); Bacteria,Urine Few /hpf; Bilirubin,Urine 1+ (Negative); Blood,Urine Negative (Negative); Color,Urine Dark Brown; Glucose,Urine (UA) Negative (Negative); Ketones,Urine Negative (Negative); Leukocyte Esterase,Urine Trace (Negative); Mucus,Urine Rare /hpf; Nitrite,Urine Positive (Negative); Protein,Urine Trace (Negative); RBC,Urine 3 /hpf (0-5); Specific Gravity,Urine 1.021 (1.001-1.035); Squamous Epithelial Cell,Urine 7 /hpf (0-4); WBC,Urine 16 /hpf (0-5)
[2022-11-12 04:07] LABS: Albumin 4.3 g/dL (3.5-5.0); Calcium 9.1 mg/dL (8.4-10.2); Potassium 4.1 mmol/L (3.5-5.1); Total Protein 7.3 g/dL (6.3-8.2)
[2022-11-12] MEDS ORDERED: HYDROmorphone 0.5 MG/0.5 ML SYRINGE IVP STA (04:30)
--- NOTE | 2022-11-12 05:15 | CT ---
EXAMINATION TYPE: CT abdomen pelvis w con DATE OF EXAM: 11/12/2022 COMPARISON: None HISTORY: LLQ pain. CT DLP: 1276.2 mGycm Automated exposure control for dose reduction was used. CONTRAST: Performed with IV Contrast, patient injected with 100ml mL of Isovue 300. Images obtained from the diaphragm to the floor the pelvis with the IV contrast. The lung bases are clear. No pleural effusion. Heart size is normal. No pericardial effusion. The liver spleen and stomach pancreas gallbladder appear normal. The bile ducts are not dilated. There is no adrenal mass. Kidneys have normal size. There is left-sided hydronephrosis and hydrourete r. There is left-sided perinephric edema. There is some mild free fluid in the pelvis with low attenu ation. There are clips from tubal ligation. The uterus is anteverted. No inguinal hernia. Appendix is posterior and appears normal. There is no ascites or free air. No sign of a bowel obstruction. No intestinal wall thickening. The d elayed images show a dilated left sided pyelogram. There is normal excretion in the right upper colle cting system on the delayed images. There is a faint 2 mL calcification in the pelvis that is likely calculus in the distal left ureter at the ureterovesical junction. There is rounded fluid density in the pelvis on the left side that is possible ovarian cyst in posterior position. The lumbar vertebrae have normal alignment. Posterior elements are intact. No compression fracture. [place] pelvis is intact. IMPRESSION: Small obstructing calculus at the left ureterovesical junction with left-sided hydronephrosis and hyd roureter. Perinephric edema. Mild low-density free fluid in the pelvis of uncertain significance. There is possible 4 cm cyst on t he left ovary.
[2022-11-12] MEDS ORDERED: ACETAMINOPHEN TAB 325 MG TAB PO PRN (05:26)
[2022-11-12] MEDS ORDERED: NALOXONE 0.4 MG/ML 1 ML VIAL IV PRN (05:26)
[2022-11-12] MEDS ORDERED: cefTRIAXone IN SWFI 1,000 MG/10 ML SYRINGE IVP STA (05:30)
[2022-11-12] MEDS: SODIUM CHLORIDE 0.9% 1,000 ML IV SCH ×3 (06:10→21:45)
[2022-11-12] MEDS: HYDROmorphone 0.5 MG/0.5 ML SYRINGE IVP PRN ×4 (08:07→22:04)
--- NOTE | 2022-11-12 08:23 | P.GSCN ---
History of Present Illness Consult date: 11/12/22 Reason for Consult: Left renal colic Requesting physician: Chris Delacruz History of present illness: The patient is a 57-year-old white female admitted with a 36 hour history of left lower quadrant and left flank pain. She was initially evaluated in an urgent care center, where urinalysis showed evidence of microhematuria. Her pain was intractable, so she presented to the ER and underwent a CT scan which showed mild left hydronephrosis due to a possible 2 mm calculus at the left UVJ. Her pain is somewhat improved now. Review of Systems - Constitutional Denies chills, Denies fever - Gastrointestinal Reports diarrhea, Reports nausea, Reports vomiting - Genitourinary Genitourinary: Reports flank pain, Reports kidney stones, Denies dysuria, Denies hematuria Past Medical History Past Medical History: GERD/Reflux, Hypertension Additional Past Medical History / Comment(s): varicose veins,migraines,hypoglycemia History of Any Multi-Drug Resistant Organisms: None Reported Past Surgical History: Orthopedic Surgery, Tubal Ligation, Uterine Ablation Additional Past Surgical History / Comment(s): arthroscopic rt knee x 2, neck surgery for herniated disk, lumbar puncture Past Anesthesia/Blood Transfusion Reactions: Motion Sickness, Postoperative Nausea & Vomiting (PONV) Additional Past Anesthesia/Blood Transfusion Reaction / Comm: can not touch her chin to her chest as result of neck surgery- no limitations to tip head back Past Psychological History: No Psychological Hx Reported Smoking Status: Never smoker Past Alcohol Use History: Occasional Past Drug Use History: None Reported Medications and Allergies Home Medications Medication Instructions Recorded Confirmed Type Atenolol [Tenormin] 50 mg PO DAILY 12/13/14 08/11/19 History Omeprazole [PriLOSEC] 20 mg PO DAILY 12/13/14 08/11/19 History Spironolactone-Hctz 25-25Mg 1 each PO DAILY 12/13/14 08/11/19 History [Aldactazide 25-25 MG] Acetaminophen-Codeine 300-30mg 1 - 2 tab PO DAILY PRN 08/08/19 08/11/19 History [Tylenol w/codeine #3] Aspirin [Adult Low Dose Aspirin EC] 81 mg PO DAILY 08/08/19 08/11/19 History Felicia 500 mg PO DAILY 08/08/19 08/11/19 History Ginkgo Biloba 500 mg PO DAILY 08/08/19 08/11/19 History Nortriptyline HCl [Pamelor] 25 mg PO HS 08/08/19 08/11/19 History Allergies Allergy/AdvReac Type Severity Reaction Status Date / Time oranges Allergy Itching,yadiel Uncoded 11/12/22 02:23 h Surgical - Exam Vital Signs Temp Pulse Resp BP Pulse Ox 97.9 F 61 18 169/83 95 11/12/22 02:19 11/12/22 02:19 11/12/22 02:19 11/12/22 02:19 11/12/22 02:19 - General well developed, well nourished, no distress - Neck no masses, trachea midline - Respiratory normal respiratory effort - Abdomen Abdomen: soft, tender (Mild left lower quadrant tenderness), no masses, no guarding, no rigid, no rebound - Psychiatric oriented to time, oriented to person, oriented to place, speech is normal, memory intact Results - Labs 11/12/22 03:45 11/12/22 03:45 Abnormal Lab Results - Last 24 Hours (Table) 11/12/22 11/12/22 11/12/22 Range/Units 03:45 03:45 03:45 WBC 11.0 H (3.8-10.6) k/uL Neutrophils # 9.6 H (1.3-7.7) k/uL Carbon Dioxide 21 L (22-30) mmol/L BUN 19 H (7-17) mg/dL Creatinine 1.66 H (0.52-1.04) mg/dL Glucose 127 H (74-99) mg/dL AST 48 H (14-36) U/L ALT 36 H (4-34) U/L Urine Appearance Cloudy H (Clear) Urine Protein Trace H (Negative) Urine Nitrite Positive H (Negative) Urine Bilirubin 1+ H (Negative) Ur Leukocyte Esterase Trace H (Negative) Urine WBC 16 H (0-5) /hpf Ur Squamous Epith Cells 7 H (0-4) /hpf Urine Bacteria Few H (None) /hpf Urine Mucus Rare H (None) /hpf Diabetes panel 11/12/22 Range/Units 03:45 Sodium 137 (137-145) mmol/L Potassium 4.1 (3.5-5.1) mmol/L Chloride 107 (98-107) mmol/L Carbon Dioxide 21 L (22-30) mmol/L BUN 19 H (7-17) mg/dL Creatinine 1.66 H (0.52-1.04) mg/dL Glucose 127 H (74-99) mg/dL Calcium 9.1 (8.4-10.2) mg/dL AST 48 H (14-36) U/L ALT 36 H (4-34) U/L Alkaline Phosphatase 52 (38-126) U/L Total Protein 7.3 (6.3-8.2) g/dL Albumin 4.3 (3.5-5.0) g/dL Calcium panel 11/12/22 Range/Units 03:45 Calcium 9.1 (8.4-10.2) mg/dL Albumin 4.3 (3.5-5.0) g/dL Pituitary panel 11/12/22 Range/Units 03:45 Sodium 137 (137-145) mmol/L Potassium 4.1 (3.5-5.1) mmol/L Chloride 107 (98-107) mmol/L Carbon Dioxide 21 L (22-30) mmol/L BUN 19 H (7-17) mg/dL Creatinine 1.66 H (0.52-1.04) mg/dL Glucose 127 H (74-99) mg/dL Calcium 9.1 (8.4-10.2) mg/dL Adrenal panel 11/12/22 Range/Units 03:45 Sodium 137 (137-145) mmol/L Potassium 4.1 (3.5-5.1) mmol/L Chloride 107 (98-107) mmol/L Carbon Dioxide 21 L (22-30) mmol/L BUN 19 H (7-17) mg/dL Creatinine 1.66 H (0.52-1.04) mg/dL Glucose 127 H (74-99) mg/dL Calcium 9.1 (8.4-10.2) mg/dL Total Bilirubin 1.0 (0.2-1.3) mg/dL AST 48 H (14-36) U/L ALT 36 H (4-34) U/L Alkaline Phosphatase 52 (38-126) U/L Total Protein 7.3 (6.3-8.2) g/dL Albumin 4.3 (3.5-5.0) g/dL - Imaging CT scan - abdomen: report reviewed, image reviewed Assessment and Plan (1) Calculus of ureter Current Visit: Yes Status: Acute Code(s): N20.1 - CALCULUS OF URETER SNOMED Code(s): 36224075 (2) Hydronephrosis with renal and ureteral calculous obstruction Current Visit: Yes Status: Acute Code(s): N13.2 - HYDRONEPHROSIS WITH RENAL AND URETERAL CALCULOUS OBSTRUCTION SNOMED Code(s): 590703403 Plan: Urinalysis showed positive nitrates, but the patient had taken AZO which can cause this. The urinalysis otherwise did not suggest the presence of infection, nor had the urinalysis done at the urgent care Center yesterday suggested an infection. The patient's symptoms appear to be due to a tiny left UVJ calculus. I had a lengthy discussion with the patient, outlining options which consist of medical expulsion therapy versus ureteroscopic removal of the calculus. She was advised that the calculus has a 95% chance of passing. She will remain hospitalized today, receiving IV hydration along with parenteral analgesics and antiemetics. If she passes the calculus, she will be discharged home. If her symptoms are controlled with oral analgesics, she could be discharged home though she understands the possibility that she will develop pain refractory to oral analgesics requiring readmission. I have prescribed tamsulosin and asked that the urine be strained. I have made her NPO after midnight in the event she chooses to undergo ureteroscopic removal of the calculus tomorrow. Time with Patient: Greater than 30
[2022-11-12] MEDS: TAMSULOSIN 0.4 MG CAP.ER.24H PO SCH (09:01)
[2022-11-12] MEDS ORDERED: SUMAtriptan succinate 50 MG TAB PO PRN (10:53)
[2022-11-12] MEDS: TOPIRAMATE 25 MG TAB PO SCH ×2 (11:39→21:45)
[2022-11-12] MEDS: PANTOPRAZOLE 40 MG TABLET PO SCH (11:39)
[2022-11-12] MEDS: atenoloL 50 MG TAB PO SCH ×2 (11:39→21:45)
[2022-11-12] MEDS: ASPIRIN 81 MG PO SCH (11:39)
[2022-11-12] MEDS: TAMOXIFEN 10 MG TAB PO SCH (15:55)
[2022-11-12] MEDS ORDERED: DEXAMETHASONE SOD PHOSPHATE 10 MG/ML 1 ML VIAL ONE (18:58)
[2022-11-12] MEDS ORDERED: LIDOCAINE 2% INJ 20 MG/ML (2 ML VIAL) ONE (18:58)
[2022-11-12] MEDS ORDERED: SUCCINYLCHOLINE CHLORIDE 200 MG/10 ML VIAL IV ONE (18:58)
[2022-11-12] MEDS ORDERED: ONDANSETRON 4 MG/2 ML VIAL ONE (18:58)
[2022-11-12] MEDS ORDERED: PROPOFOL 10 MG/ML 20 ML VIAL IV ONE (18:58)
[2022-11-12] MEDS ORDERED: fentaNYL (PF) 50 MCG/ML 2 ML AMP ONE (18:58)
[2022-11-12] MEDS ORDERED: MIDAZOLAM 2 MG/2 ML VIAL ONE (18:58)
--- NOTE | 2022-11-12 20:57 | HP ---
HISTORY AND PHYSICAL CHIEF COMPLAINT: Left-sided abdominal pain. HISTORY OF PRESENT ILLNESS: This is a 57-year-old woman with a past medical history of multiple medical problems including GERD, hypertension, was complaining of left renal colic and left renal angle pain and left-sided abdominal pain. The patient had a CT scan of the abdomen and pelvis, which showed small obstructing calculus in the left ureterovesical junction with left-sided hydronephrosis and hydroureter. Perinephric edema was also noted. The patient was admitted for further evaluation and treatment. There is no history of any fever, rigors, or chills at this time. PAST MEDICAL HISTORY: Hypertension, GERD. The rest of the history and rest of the chart is reviewed. HOME MEDICATIONS: Reviewed include nitrofurantoin, dose and rest of medication noted. ALLERGIES: Oranges. FAMILY HISTORY: No history of heart disease or strokes in the family. SOCIAL HISTORY: No history of smoke. Occasional alcohol intake. REVIEW OF SYSTEMS: A 14-point review is negative except as mentioned earlier. PHYSICAL EXAMINATION: VITAL SIGNS: Pulse is 60, blood pressure 120/70, respirations 16. HEENT: Conjunctivae normal. CARDIOVASCULAR: S1, S2. RESPIRATIONS: Clear to auscultation. ABDOMEN: Soft. Mild diffuse tenderness in the left side of abdomen. No guarding. No rigidity. No mass palpable. No ascites. LEGS: No edema. NERVOUS SYSTEM: No focal deficits. LABS: WBC 11. The rest of the labs are noted. ASSESSMENT: 1. Left ureteric colic. 2. Rule out urinary tract infection. 3. Left ureteropelvic junction stone with hydronephrosis and hydroureter. 4. Hypertension. 5. Multiple medical issues. RECOMMENDATIONS AND DISCUSSION: This is a 57-year-old woman, who presented with multiple medical issues. At this time, I recommend to continue the current medications, symptomatic treatment. Otherwise continue with IV fluids. Repeat labs in the morning. Symptomatic treatment. Urine culture. Closely follow with Urology. Prognosis guarded because of multiple complex medical issues. Further recommendations to follow. A copy of this dictation is being forwarded to Dr. Luis Eduardo Sanford, who is the primary physician. MMODL / RADHAMESN: [id number] /
[2022-11-12] MEDS: HEPARIN SODIUM,PORCINE/PF 5,000 UNIT/0.5 ML SYRINGE SQ SCH (21:45)
[2022-11-13] MEDS: SODIUM CHLORIDE 0.9% 1,000 ML IV SCH ×3 (06:24→16:44)
[2022-11-13] MEDS: TAMSULOSIN 0.4 MG CAP.ER.24H PO SCH (08:12)
[2022-11-13] MEDS: DULoxetine HCL 60 MG CAPSULE.DR PO SCH (08:12)
[2022-11-13] MEDS: PANTOPRAZOLE 40 MG TABLET PO SCH (08:12)
[2022-11-13] MEDS: atenoloL 50 MG TAB PO SCH ×2 (08:12→21:39)
[2022-11-13] MEDS: SPIRULINA PO SCH (08:13)
[2022-11-13] MEDS: ASPIRIN 81 MG PO SCH (08:13)
[2022-11-13] MEDS: CHOLECALCIFEROL 25 MCG (1000 IU) TABLET PO SCH (08:13)
[2022-11-13] MEDS: NON FORMULARY DRUG (Biotin [Biotin Disolve] 10,000 MCG Tablet) PO SCH (08:13)
[2022-11-13] MEDS: MULTIVITAMINS, THERA 1 EACH TAB PO SCH (08:13)
[2022-11-13] MEDS: MAGNESIUM OXIDE 400 MG TAB PO SCH (08:13)
[2022-11-13] MEDS: HEPARIN SODIUM,PORCINE/PF 5,000 UNIT/0.5 ML SYRINGE SQ SCH ×2 (08:13→21:40)
[2022-11-13] MEDS: CALCIUM CARBONATE 500 MG CHEWABLE PO SCH (08:13)
[2022-11-13] MEDS: TOPIRAMATE 25 MG TAB PO SCH ×2 (08:14→21:40)
[2022-11-13] MEDS: TAMOXIFEN 10 MG TAB PO SCH (08:14)
[2022-11-13] MEDS: HYDROmorphone 0.5 MG/0.5 ML SYRINGE IVP PRN ×4 (08:28→21:42)
[2022-11-13 08:53] LABS: Basophils # (A) 0.01 X 10*3/uL (0.00-0.10); Basophils % (A) 0.2 %; Eosinophils # (A) 0.25 X 10*3/uL (0.04-0.35); Eosinophils % (A) 3.9 %; HCT 35.3 % (37.2-46.3); HGB 11.6 g/dL (12.0-15.0); Immature Grans, Automated 0.2 %; Lymphocytes # (A) 2.22 X 10*3/uL (0.90-5.00); Lymphocytes % (A) 34.4 %; MCH 30.9 pg (27.0-32.0); MCHC 32.9 g/dL (32.0-37.0); MCV 93.9 fL (80.0-97.0); Monocytes # (A) 0.38 X 10*3/uL (0.20-1.00); Monocytes % (A) 5.9 %; NRBC Per 100 WBC 0 /100 WBCS (0.0-0.0); Neutrophils # (A) 3.58 X 10*3/uL (1.80-7.70); Neutrophils % (A) 55.4 %; Platelet Count 236 X 10*3/uL (140-440); RBC 3.76 X 10*6/uL (4.10-5.20); RDW 13.4 % (11.5-14.5); WBC 6.45 X 10*3/uL (4.50-10.00)
[2022-11-13 09:14] LABS: African American GFR (CKD) 58.1 (60.0-200.0); Anion Gap 6.7 mmol/L (10.00-18.00); BUN/Creat Ratio 14.25 Ratio (12.00-20.00); Blood Urea Nitrogen 17.1 mg/dL (9.0-27.0); Calcium 8.9 mg/dL (8.7-10.3); Carbon Dioxide 24.3 mmol/L (20.0-27.5); Non-African American GFR(CKD) 50.1 (60.0-200.0); Potassium 3.8 mmol/L (3.5-5.5)
[2022-11-13] MEDS ORDERED: POTASSIUM CHLORIDE ER 20 MEQ TAB.ER PO STA (10:11)
--- NOTE | 2022-11-13 13:22 | P.PN ---
Progress Note - Text Progress Note Date: 11/13/22 The patient has not passed her calculus. She continues to experience significant pain and does not feel confident going home. In view of this, she desires ureteroscopic removal of the calculus. The procedure was discussed with her in detail, including potential risks, and will be performed later today.
[2022-11-13] MEDS ORDERED: IV FLUID CONTINUATION 800 ML IV ONE (19:00)
--- NOTE | 2022-11-13 19:33 | P.OP ---
Date of Procedure: 11/13/22 Preoperative Diagnosis: Left ureteral calculus Postoperative Diagnosis: Same Procedure(s) Performed: Cystoscopy, left retrograde pyelogram, left ureteroscopy Anesthesia: HEIUA Surgeon: Jose Angel Ding Estimated Blood Loss (ml): 0 IV fluids (ml): 400 Pathology: none sent Condition: stable Disposition: PACU Indications for Procedure: The patient is a 57-year-old white female admitted with a 36 hour history of left lower quadrant and left flank pain. She was initially evaluated in an urgent care center, where urinalysis showed evidence of microhematuria. Her pain was intractable, so she presented to the ER and underwent a CT scan which showed mild left hydronephrosis due to a possible 2 mm calculus at the left UVJ. She was admitted and her pain has persisted. She was advised that the calculus has a very high likelihood of passage, but she is reluctant to be discharged for fear of another attack. She thus desires ureteroscopic removal of the calculus. Operative Findings: Mild edema of left ureteral orifice. No calculus seen. Description of Procedure: The patient was taken to the operating room and placed in the dorsolithotomy position, with her legs supported in Marcelo stirrups. The external genitalia was prepped and draped sterilely. The 30 lens was used to introduce the 19-German start cystoscopic sheath through the urethra and into the bladder under direct vision. The urethra was unremarkable. The bladder was examined in its entirety. Both ureteral orifices were normal anatomic location and configuration, and clear urine effluxed from both. The left ureteral orifice was slightly edematous. No tumors or foreign bodies were seen. Using a 10-German cone-tipped catheter, a left retrograde pyelogram was performed. The study was normal. Specifically, there was no evidence of hydroureteronephrosis, and no filling defects were seen within the distal ureter. The cystoscope was removed, and the Pérez semirigid ureteroscope was passed into the bladder. The left ureteral orifice was cannulated, and the ureteroscope was slowly advanced up to the left ureteropelvic junction. No calculi were seen. Mild edema of the intramural portion of the ureter was noted. The ureter was otherwise unremarkable. The ureteroscope was withdrawn and the procedure was terminated. The patient tolerated the procedure well was taken to the recovery room in stable condition.
--- NOTE | 2022-11-13 20:19 | FL ---
Fluoroscopy INDICATION: Pain FINDINGS: Fluoroscopy time: 25 seconds. Images obtained: 6. IMPRESSIONS: 1. Documentation of fluoroscopy.
[2022-11-14] MEDS: SODIUM CHLORIDE 0.9% 1,000 ML IV SCH ×2 (04:34→12:04)
--- NOTE | 2022-11-14 06:16 | PN ---
PROGRESS NOTE DATE OF SERVICE: 11/13/2022 SUBJECTIVE: This is a 57-year-old woman admitted with left-sided renal pain as well as ureteral colic and hydronephrosis, later ureteroscopy by Nephrology. No chest pain. No palpitation. White count is normalized today on exam. Cultures are still pending. OBJECTIVE: VITAL SIGNS: Pulse is 59, blood pressure 120/70, respirations 12. CHEST: Clear to auscultation. CARDIOVASCULAR: S1, S2. ABDOMEN: Soft. Minimal tenderness in the left side. No guarding, rigidity. LABS: Reviewed. ASSESSMENT: 1. Acute left ureteral colic with left ureteropelvic junction stone with hydronephrosis and hydroureter. 2. Rule out urinary tract infection. 3. Hypertension. 4. Multiple medical issues. RECOMMENDATIONS: Recommend to continue current management and symptomatic treatment. Follow the cultures. Otherwise, further evaluation and ureteroscopy by Urology. Further recommendations to follow. MMODL / IJN: [id number] /
--- NOTE | 2022-11-14 08:10 | P.PN ---
Progress Note - Text Progress Note Date: 11/14/22 The patient reports mild left lower quadrant discomfort. Ureteroscopy yesterday confirm that she had passed her calculus, and she was reassured that her pain should slowly resolve. She is urologically stable for discharge. I did discuss with her dietary changes to prevent future stone formation, particularly increased fluid intake. She will follow up with me as needed. Please notify me if I can be of any further assistance.
[2022-11-14] MEDS: NON FORMULARY DRUG (Biotin [Biotin Disolve] 10,000 MCG Tablet) PO SCH (09:52)
[2022-11-14] MEDS: SPIRULINA PO SCH (09:56)
[2022-11-14] MEDS: TOPIRAMATE 25 MG TAB PO SCH (10:04)
[2022-11-14] MEDS: TAMSULOSIN 0.4 MG CAP.ER.24H PO SCH (10:04)
[2022-11-14] MEDS: CALCIUM CARBONATE 500 MG CHEWABLE PO SCH (10:05)
[2022-11-14] MEDS: MAGNESIUM OXIDE 400 MG TAB PO SCH (10:05)
[2022-11-14] MEDS: CHOLECALCIFEROL 25 MCG (1000 IU) TABLET PO SCH (10:05)
[2022-11-14] MEDS: HEPARIN SODIUM,PORCINE/PF 5,000 UNIT/0.5 ML SYRINGE SQ SCH (10:05)
[2022-11-14] MEDS: ASPIRIN 81 MG PO SCH (10:05)
[2022-11-14] MEDS: PANTOPRAZOLE 40 MG TABLET PO SCH (10:05)
[2022-11-14] MEDS: atenoloL 50 MG TAB PO SCH (10:05)
[2022-11-14] MEDS: DULoxetine HCL 60 MG CAPSULE.DR PO SCH (10:05)
[2022-11-14] MEDS: TAMOXIFEN 10 MG TAB PO SCH (10:05)
[2022-11-14] MEDS: MULTIVITAMINS, THERA 1 EACH TAB PO SCH (10:05)
[2022-11-14 11:31] LABS: Basophils % (A) 0 %; Eosinophils % (A) 0 %; HCT 35.4 % (34.0-46.0); HGB 11.7 gm/dL (11.4-16.0); Lymphocytes # (A) 1.4 k/uL (1.0-4.8); Lymphocytes % (A) 18 %; MCH 31.2 pg (25.0-35.0); MCHC 33.1 g/dL (31.0-37.0); MCV 94.5 fL (80.0-100.0); Monocytes # (A) 0.3 k/uL (0-1.0); Monocytes % (A) 4 %; Neutrophils # (A) 6.3 k/uL (1.3-7.7); Neutrophils % (A) 77 %; Platelet Count 236 k/uL (150-450); RBC 3.74 m/uL (3.80-5.40); RDW 12.5 % (11.5-15.5); WBC 8.1 k/uL (3.8-10.6)
[2022-11-14 11:49] LABS: African American GFR (CKD) 74 (>60 ml/min/1.73 sqM); Anion Gap 5 mmol/L; Blood Urea Nitrogen 16 mg/dL (7-17); Calcium 8.4 mg/dL (8.4-10.2); Carbon Dioxide 24 mmol/L (22-30); Chloride 109 mmol/L (98-107); Glucose 115 mg/dL (74-99); Non-African American GFR(CKD) 64 (>60 ml/min/1.73 sqM); Potassium 3.5 mmol/L (3.5-5.1); Sodium 138 mmol/L (137-145)
[2022-11-14 11:57] VITALS: BP 149/74; PULSE 71; RESP 18; TEMP 97.5
--- NOTE | 2022-11-15 12:02 | P.DS ---
Providers Date of admission: 11/12/22 05:27 Expected date of discharge: 11/14/22 Attending physician: Chris Delacruz Consults: 11/12/22 05:26 Consult Physician Routine Consulting Provider: Jose Angel Ding Consult Reason/Comments: stone Do you want consulting provider notified?: Yes Primary care physician: Luis Eduardo Juvenal [place] [facility] Course: Final diagnosis Acute left ureteral colic with left ureteral pelvic junction stone with hydronephrosis and hydroureter Ruled out acute urinary tract infection Hypertension History of migraines Gastroesophageal reflux disease Full code Discharge disposition Patient is being discharged in a stable condition with guarded prognosis to home. Patient will follow-up with Dr. Sanford in the outpatient setting upon discharge. Patient is to continue with oral Ceftin for 2 days to complete the course. Patient to follow-up with urology as scheduled. Total time taken is greater than 35 minutes. Hospital course This is a 57-year-old female who was recently admitted with acute left flank pain and found to have an acute left ureteral colic with left ureteral pelvic junction stone with hydronephrosis and hydroureter seen and evaluated by urology underwent evaluation and noted to have passed the stone. Patient did have attempts and elevated white blood count and started on antibiotics and urine cultures finalize being no growth and showed clinical improvement as well on IV ceftriaxone and will continue to additional days of Ceftin in the outpatient setting to complete the course. Patient to follow-up with urology outpatient along with primary care provider. Encouraged fluids and oral intake. Follow-up labs recommended. Monitor kidney functions and electrolytes. Currently no reports of chest pain, shortness of breath, or palpitations. Patient is afebrile. No reports of nausea or vomiting and patient is tolerating diet. Patient will be discharged home today. Guarded prognosis. Physical exam: Gen: This is a 57-year-old female awake, alert and oriented 3, well-developed, well-nourished, obese HEENT: Head is atraumatic, normocephalic. Pupils equal, round. Sclerae is anicteric. NECK: Supple. No JVD. No lymphadenopathy. No thyromegaly. LUNGS: Clear to auscultation. No wheezes or rhonchi. No intercostal retractions. HEART: Regular rate and rhythm. No murmur. ABDOMEN: Soft. Bowel sounds are present. No masses. mild tenderness. Some mild left lower abdominal radiating tenderness around to the flank pain with improvement on palpation EXTREMITIES: No pedal edema. No calf tenderness. Some mild left lower abdominal radiating around to the flank pain with improvement on palpation NEUROLOGICAL: Patient is awake, alert and oriented x3. Cranial nerves 2 through 12 are grossly intact. Please refer to medication reconciliation sheet for a list of medications. The impression and plan of care has been dictated by Barb Pretty, Nurse Practitioner as directed. Dr. Jayme MD I have performed a history and examination and MDM of this patient, discussed the same with the dictator, and agree with the dictator's assessment and plan as written ,documented as a scribe. Based on total visit time, I have performed more than 50% of the visit. Patient Condition at Discharge: Good Plan - Discharge Summary Discharge Rx Participant: No New Discharge Prescriptions: New cefUROXime axetiL [Ceftin] 500 mg PO BID 2 Days #4 tab Tamsulosin [Flomax] 0.4 mg PO DAILY #30 cap Acetaminophen Tab [Tylenol] 650 mg PO Q6HR PRN tab PRN Reason: Mild Pain Or Fever > 100.5 Continue Omeprazole [PriLOSEC] 20 mg PO DAILY Atenolol [Tenormin] 50 mg PO BID Aspirin [Adult Low Dose Aspirin EC] 81 mg PO DAILY Felicia 500 mg PO DAILY Calcium Carbonate 500 mg PO DAILY Cholecalciferol [Vitamin D3 (25 Mcg = 1000 Iu)] 25 mcg PO DAILY Topiramate 50 mg PO BID DULoxetine HCL [Cymbalta] 60 mg PO DAILY Cinnamon Bark [Cinnamon] 500 mg PO DAILY Multivitamins, Thera [Multivitamin (formulary)] 1 tab PO DAILY Biotin [Biotin Disolve] 10,000 mcg PO DAILY Magnesium Oxide [Magnesium] 500 mg PO DAILY Ginkgo Biloba [place] Extract [Ginkgo Biloba] 125 mg PO DAILY Tamoxifen Citrate [Nolvadex] 20 mg PO DAILY Spirulina 1 tab PO DAILY Rizatriptan Odt [Maxalt HEATER WORKER] 10 mg SL DAILY PRN PRN Reason: Headache Discontinued nitrofurantoin macrocrystaL [Nitrofurantoin] 100 mg PO Q12H Discharge Medication List Atenolol [Tenormin] 50 mg PO BID 12/13/14 [History] Omeprazole [PriLOSEC] 20 mg PO DAILY 12/13/14 [History] Aspirin [Adult Low Dose Aspirin EC] 81 mg PO DAILY 08/08/19 [History] Felicia 500 mg PO DAILY 08/08/19 [History] Biotin [Biotin Disolve] 10,000 mcg PO DAILY 11/12/22 [History] Calcium Carbonate 500 mg PO DAILY 11/12/22 [History] Cholecalciferol [Vitamin D3 (25 Mcg = 1000 Iu)] 25 mcg PO DAILY 11/12/22 [History] Cinnamon Bark [Cinnamon] 500 mg PO DAILY 11/12/22 [History] DULoxetine HCL [Cymbalta] 60 mg PO DAILY 11/12/22 [History] Ginkgo Biloba [place] Extract [Ginkgo Biloba] 125 mg PO DAILY 11/12/22 [History] Magnesium Oxide [Magnesium] 500 mg PO DAILY 11/12/22 [History] Multivitamins, Thera [Multivitamin (formulary)] 1 tab PO DAILY 11/12/22 [History] Rizatriptan Odt [Maxalt HEATER WORKER] 10 mg SL DAILY PRN 11/12/22 [History] Spirulina 1 tab PO DAILY 11/12/22 [History] Tamoxifen Citrate [Nolvadex] 20 mg PO DAILY 11/12/22 [History] Topiramate 50 mg PO BID 11/12/22 [History] Acetaminophen Tab [Tylenol] 650 mg PO Q6HR PRN tab 11/14/22 [Rx] Tamsulosin [Flomax] 0.4 mg PO DAILY #30 cap 11/14/22 [Rx] cefUROXime axetiL [Ceftin] 500 mg PO BID 2 Days #4 tab 11/14/22 [Rx] Follow up Appointment(s)/Referral(s): Luis Eduardo Sanford DO [Primary Care Provider] - 1-2 days Jose Angel Ding MD [STAFF PHYSICIAN] - 1 Week Ambulatory/Diagnostic Orders: Complete Blood Count w/diff [LAB.AMB] Time Frame: 1 Week, Location: None Selected Patient Instructions/Handouts: Cefuroxime (By mouth), Tamsulosin (By mouth), Kidney Stones (DC), Urinary Tract Infection in Women (DC), Complete Blood Count (GEN) Activity/Diet/Wound Care/Special Instructions: Activity Limited until follow-up Follow-up with urology outpatient Continue taking medications as prescribed Continue to encourage fluids and oral intake Monitor for any fevers and use Tylenol and/or Motrin Follow-up primary care provider on discharge Repeat labs within the next week Discharge Disposition: HOME SELF-CARE
== END 2022-11-14 13:27 | disposition home or self-care (01) | DRG 694 ==
LOC: EC 02:08 → 5NMEDONC 05:27
PROVIDERS: ADMIT Hospitalist; ATTEND Hospitalist
PROC: 0TJ98ZZ Inspection of Ureter, Via Natural or Artificial Opening Endoscopic (ICD-10-PCS; principal; 2022-11-13 11:20)
PROC: BT1F1ZZ Fluoroscopy of Left Kidney, Ureter and Bladder using Low Osmolar Contrast (ICD-10-PCS; principal; 2022-11-13 11:20)
DX: N13.2 Hydronephrosis with renal and ureteral calculous obstruction (principal); E66.9 Obesity, unspecified; I10 Essential (primary) hypertension; K21.9 Gastro-esophageal reflux disease without esophagitis; G43.909 Migraine, unspecified, not intractable, without status migrainosus; Z68.31 Body mass index [BMI] 31.0-31.9, adult; I83.90 Asymptomatic varicose veins of unspecified lower extremity; Z79.82 Long term (current) use of aspirin; Z79.899 Other long term (current) drug therapy; Z91.018 Allergy to other foods
CPT/HCPCS: 36415; 74177; 74420; 80048; 80053; 81001; 83690; 85025; 87040; 87086; 96361; 96374; 96375; 96376; 99285

== ENCOUNTER → 2022-12-29 | Outpatient (CLI) | payer MEDICARE ==
--- NOTE | 2022-12-29 14:30 | US ---
EXAMINATION TYPE: US pelvic complete DATE OF EXAM: 12/29/2022 COMPARISON: abnormal CT CLINICAL HISTORY: N83.202 Ovarian Cyst. TECHNIQUE: Transvaginal (TV) and Transabdominal (TA) . Transabdominal sonographic images of the pel vis were acquired. Transvaginal sonographic images were medically necessary to better assess the fol lowing anatomy: uterus and both ovaries Date of LMP: EXAM MEASUREMENTS: Uterus: 6.2 x 3.7 x 5.0 cm Endometrial Stripe: not seen due to fibroid and prior ablation Right Ovary: 2.4 x 1.4 x 1.3 cm Left Ovary: 5.5 x 2.9 x 5.0 cm 1. Uterus: anteflexed, seen with several fibroids, largest at fundal measuring 4.0 x 3.2 x 4.2 and a t lower uterine segment measuring 2.4 x 1.9 x 1.6cm 2. Endometrium: not seen secondary to fibroids and prior ablation 3. Right Ovary: wnl 4. Left Ovary: enlarged, seen with a septated 5.0 cm cyst with lacelike internal echoes. Thin wall i dentified. No visualized solid component. 5. Bilateral Adnexa: wnl 6. Posterior cul-de-sac: seen with mild amount of free fluid IMPRESSION: 1. Multiple uterine fibroids with largest measuring up to 4.0 cm in the fundus. Endometrium is not we ll visualized due to fibroids and prior ablation. 2. Left ovarian cystic lesion with thin internal septations measuring up to 5.0 cm. This demonstrates a thin wall with no visualized solid component. This may represent a hemorrhagic cyst versus other e tiologies. Follow-up examination in one year is recommended to assess for stability or resolution.
== END | disposition home or self-care (01) ==
LOC: RADUSWWP 13:44
PROVIDERS: ATTEND Family Medicine
DX: D25.9 Leiomyoma of uterus, unspecified (principal); N83.202 Unspecified ovarian cyst, left side
CPT/HCPCS: 76830; 76856

== ENCOUNTER → 2023-12-01 | Outpatient (CLI) | payer MEDICARE ==
--- NOTE | 2023-12-01 15:31 | US ---
EXAMINATION TYPE: US pelvis complete transvag DATE OF EXAM: 12/01/2023 COMPARISON: NONE CLINICAL INDICATION: Female, 58 years old with history of N83.202 UNSPECIFIED OVARIAN CYST, LEFT SIDE ; History of ovarian cyst and uterine fibroids. Ablation TECHNIQUE: Transvaginal (TV) and Transabdominal (TA) . Transabdominal sonographic images of the pel vis were acquired. Transvaginal sonographic images were medically necessary to better assess the fol lowing anatomy: uterus and ovaries Date of LMP: unknown EXAM MEASUREMENTS: Uterus: 6.7 x 4.9 x 5.3 cm Endometrial Stripe: unable to visualize due to fibroids Right Ovary: 2.9 x 1.6 x 1.8 cm Left Ovary: 4.3 x 2.6 x 2.3 cm 1. Uterus: Anteverted. heterogeneous. Multiple fibroids, largest = 4.4 x 4.3 x 3.8cm 2. Endometrium: unable to visualize due to fibroids 3. Right Ovary: appears wnl. There is a 1.3 cm cyst on the right ovary. 4. Left Ovary: Simple appearing cystic area = 3.2 x 2.4 x 2.4cm . Previous complex cyst left ovary n ot identified. 5. Bilateral Adnexa: Moderate free fluid left adnexa 6. Posterior cul-de-sac: wnl IMPRESSION: 1. Bilateral ovarian cysts. Previous complex cyst left ovary has resolved. There are simple appearing cysts present 2. Multiple uterine fibroids. 3. Moderate free fluid within the left adnexa
== END | disposition home or self-care (01) ==
LOC: RADUSWWP 12:56
PROVIDERS: ATTEND Family Medicine
DX: N83.202 Unspecified ovarian cyst, left side (principal); N83.201 Unspecified ovarian cyst, right side; D25.9 Leiomyoma of uterus, unspecified
CPT/HCPCS: 76830; 76856

== ENCOUNTER → 2023-12-24 | Outpatient (CLI) | payer MEDICARE ==
--- NOTE | 2023-12-25 10:01 | US ---
EXAMINATION TYPE: US kidneys/renal and bladder DATE OF EXAM: 12/24/2023 COMPARISON: None CLINICAL INDICATION: Female, 58 years old with history of N19 UNSPECIFIED KIDNEY FAILURE; Pt states h er blood work was abnormal EXAM MEASUREMENTS: Right Kidney: 9.3 x 4.4 x 4.1 cm Left Kidney: 9.5 x 5.1 x 5.2 cm Right Kidney: Mild hydronephrosis seen Left Kidney: No hydronephrosis or masses seen Bladder: wnl Bilateral Jets seen: Yes Incidental echogenic appearance to the hepatic parenchyma. IMPRESSION: 1. Mild right-sided hydronephrosis. Further clinical correlation recommended. 2. Incidental moderate hepatic steatosis. Appropriate clinical management advised.
== END | disposition home or self-care (01) ==
LOC: RADUSWWP 16:15
PROVIDERS: ATTEND Family Medicine
DX: N13.30 Unspecified hydronephrosis (principal); K76.0 Fatty (change of) liver, not elsewhere classified; N19 Unspecified kidney failure
CPT/HCPCS: 76770

== ENCOUNTER → 2024-02-04 | Outpatient (CLI) | payer MEDICARE ==
--- NOTE | 2024-02-04 15:34 | CT ---
EXAMINATION: CT UROGRAM WITHOUT AND WITH CONTRAST. DATE OF EXAMINATION: 02/04/2024. COMPARISON: Ultrasound kidneys on 12/24/2023.. INDICATION: Hydronephrosis. PROCEDURE: Axial CT of the abdomen and pelvis was performed with sagittal and coronal reformatted i mages without contrast enhancement. CT dose lowering techniques were used, to include: automated expo sure control, adjustment for patient size, and/or use of iterative reconstruction. The exam is limite d because some types of pathology may not be adequately demonstrated due to lack of contrast enhancem ent. FINDINGS: LOWER CHEST : The visualized lung bases are clear. There are no pleural or pericardial effusions. ABDOMEN: Liver and Biliary system: There is mild diffuse decreased attenuation of the liver which is compatib le fatty liver infiltration. No focal liver lesions are otherwise seen.. Adrenal glands: Normal. Kidneys and ureters: There are no renal stones or hydronephrosis. No ureteral stones are present.. Spleen: Normal. Pancreas: Normal. Gallbladder: Normal. Lymph nodes, Peritoneum and mesentery: There is no mesenteric or retroperitoneal lymphadenopathy. Gastrointestinal tract: There are no dilated loops of bowel or free intraperitoneal air. . The appe ndix is normal. Aorta/IVC: No aortic aneurysm.. IVC normal. Abdominal wall: Normal. PELVIS: Fluid: There is a small amount of free fluid within the pelvis. Lymph Nodes: There is no pelvic or inguinal lymphadenopathy.. Urinary bladder: Normal. BONES: There are no osseous destructive lesions.. ADDITIONAL SIGNIFICANT FINDINGS: None. IMPRESSION: 1. No renal stones or hydronephrosis.. 2. No bowel obstruction or appendicitis. 3. Mild hepatic steatosis.
== END | disposition home or self-care (01) ==
LOC: RADCTMAIN 13:17
PROVIDERS: ATTEND Family Medicine
DX: K76.0 Fatty (change of) liver, not elsewhere classified (principal); N13.39 Other hydronephrosis
CPT/HCPCS: 74178; 74400; Q9967

== ENCOUNTER → 2024-08-29 | Outpatient (CLI) | payer MEDICARE ==
--- NOTE | 2024-08-30 11:12 | MM ---
Reason for Exam: Screening (asymptomatic). Last screening mammogram was performed 12 month(s) ago. Patient History: Menarche at age 15. Patient has no children. Postmenopausal. Breast cancer, left, age 56. Currently using Tamoxifen, for 9 months. 05/09/2022, Bilateral Reduction. Prior Study Comparison: 04/12/2021 Bilateral Screening Mammogram, [facility]. 08/27/2022 Bilateral MG 3D diag mammo w/cad ERA, [facility]. 08/28/2023 Bilateral MG 3D screening mammo w/cad, [facility]. Tissue Density: There are scattered areas of fibroglandular density. Findings: Analyzed By CAD. Right breast: There is no suspicious group of microcalcifications or new suspicious mass. Left breast: There is no suspicious group of microcalcifications or new suspicious mass. Overall Assessment: Negative, BI-RAD 1 Management: Screening Mammogram of both breasts in [address] [facility] will attempt to contact patient to return for supplemental views and ultrasound if indicated. Patient should continue monthly self-breast exams. A clinical breast exam by your physician is recommended on an annual basis. This exam should not preclude additional follow-up of suspicious palpable abnormalities. Note on Bina scores and lifetime risk: 1. A Bina score greater than 3% is considered moderate risk. If this is the case, consider specialist referral to assess eligibility for a risk reducing agent. 2. If overall lifetime risk for the development of breast cancer is 20% or higher, the patient may qualify for future screening with alternating mammogram and breast MRI. [facility], , 08/30/2024 11:10 AM. Electronically signed and approved by: Abraham Shelby DO
== END | disposition home or self-care (01) ==
LOC: RADMAMWWP 11:14
PROVIDERS: ATTEND Internal Medicine
DX: Z12.31 Encounter for screening mammogram for malignant neoplasm of breast
CPT/HCPCS: 77063; 77067